=== PATIENT | female | born 1955 | race Caucasian/White ===

== ENCOUNTER 2024-05-25 07:57 | Emergency (ER) | payer MEDICARE, BC ==
[~2024-05-25] VITALS: Ht 160 cm; Wt 80.5 kg
[~2024-05-25 07:57] MED LIST: HYDR25CA PO; METH4PAK PO
[2024-05-25 08:18] VITALS: BP 99/49; PULSE 77; RESP 17; TEMP 98; O2SAT 95
[2024-05-25] MEDS ORDERED: MELO7.5T7 PO (10:26)
[2024-05-25] MEDS ORDERED: METH4PAK PO (10:26)
== END 2024-05-25 10:28 | disposition home or self-care (01) ==
LOC: ER 07:57
DX: M54.31 Sciatica, right side (principal); E78.5 Hyperlipidemia, unspecified; I10 Essential (primary) hypertension; E11.9 Type 2 diabetes mellitus without complications
CPT/HCPCS: 72100; 73562